=== PATIENT | male | born 1995 | race Caucasian/White ===

== ENCOUNTER 2020-10-18 00:10 | Emergency (ER) | payer OTHER, BC ==
[2020-10-18] MEDS ORDERED: CEPHALEXIN500 MG PO (03:26)
== END 2020-10-18 03:40 | disposition home or self-care (01) ==
LOC: ER1 00:10
DX: S51.812A Laceration without foreign body of left forearm, initial encounter (principal); M79.605 Pain in left leg; V86.59XA Driver of other special all-terrain or other off-road motor vehicle injured in nontraffic accident, initial encounter; Y92.410 Unspecified street and highway as the place of occurrence of the external cause; Z23 Encounter for immunization
CPT/HCPCS: 12005; 73080; 73090; 73552; 73562; 90471; 90715; 99283